=== PATIENT | male | born 1940 | race Caucasian/White ===

== ENCOUNTER → 2024-06-12 | Outpatient (CLI) | payer OTHER, SELFPAY ==
[2024-06-12 17:17] LABS: Alanine Aminotransferase 20 U/L (10-49); Albumin, Serum 4.5 gm/dL (3.4-4.8); Albumin/Globulin Ratio 1.7 (1.2-2.2); Alkaline Phosphatase 46 U/L (46-116); Anion Gap 6 (7-16); Aspartate Amino Transferase 20 U/L (0-34); BUN/Creatinine Ratio 23 Ratio (12-20); Bilirubin,Total 1.1 mg/dL (0.3-1.2); Blood Urea Nitrogen 23 mg/dL (9-23); Carbon Dioxide 29.4 mMol/L (20.0-31.0); Chloride 104 mMol/L (98-107); Globulin 2.6 gm/dL (2.3-3.5); Glucose 142 mg/dL (74-106); Osmolality,Calculated 283 (275-295); Potassium 4.2 mMol/L (3.4-5.1); Sodium 139 mMol/L (136-145); Total Protein 7.1 gm/dL (5.7-8.2); eGFR > 60 See Note
[2024-06-12 17:19] LABS: D-Dimer 1660 ng/mL (<600)
[2024-06-12 17:20] LABS: B-Type Natriuretic Peptide 1601 pg/mL (0-100)
== END | disposition home or self-care (01) ==
LOC: COPL 15:22
PROVIDERS: PCP Family Medicine; Referring Provider Nurse Practitioner Family; Visit Provider Nurse Practitioner Family
DX: R22.43 Localized swelling, mass and lump, lower limb, bilateral (principal)
CPT/HCPCS: 36415; 80053; 83880; 85379

== ENCOUNTER 2024-06-26 11:29 | Emergency (ER) | payer OTHER, SELFPAY ==
[2024-06-26 11:38] VITALS: BP 113/67; PULSE 87; RESP 16; TEMP 36.6; O2SAT 96; BMI 25.7
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
--- NOTE | 2024-06-26 11:58 | EKG_ITS ---
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
[2024-06-26 12:22] LABS: Basophils # (Auto) 0.1 Thou/mm3 (0.0-0.2); Basophils % (Auto) 2 % (0-2.5); Eosinophils # (Auto) 0.9 Thou/mm3 (0.0-0.5); Eosinophils % (Auto) 22 % (0-10); Hematocrit 28.6 % (41.0-53.0); Hemoglobin 9.8 g/dL (13.5-16.0); Immature Granulocytes % (Auto) 0 % (0-0); Immature Granulocytes Auto 0.01 Thou/mm3 (0.00-0.00); Lymphocytes # (Auto) 0.7 Thou/mm3 (1.0-4.8); Lymphocytes % (Auto) 17 % (10-50); Mean Corpuscular HGB Conc 34.3 g/dl (31.0-37.0); Mean Corpuscular Hemoglobin 33.9 pg (25.0-35.0); Mean Corpuscular Volume 99 fL (80-100); Monocytes # (Auto) 0.4 Thou/mm3 (0.0-0.8); Monocytes % (Auto) 8 % (0-12); Neutrophils # (Auto) 2.2 Thou/mm3 (1.8-7.7); Neutrophils % (Auto) 52 % (37-80); Nucleated Red Blood Cell % 0 /100 WBC (0); Platelet Count 136 Thou/mm3 (140-440); RDW Standard Deviation 48.5 fL (35.1-43.9); Red Blood Count 2.89 Miln/mm3 (4.50-5.90); White Blood Count 4.3 Thou/mm3 (3.8-10.6)
[2024-06-26 12:26] LABS: Collection Type, Urine Clean Catch; Squamous Epithelial Cell,Urine 0 /hpf (0-5)
[2024-06-26 12:36] LABS: INR 1.2 (0.9-1.3); Partial Thromboplastin Time 28.8 Seconds (22.0-36.0); Prothrombin Time 13.2 Seconds (9.0-12.2)
[2024-06-26 12:47] LABS: Bilirubin,Urine Negative (Negative); Blood,Urine Negative (Negative); Color,Urine Yellow (Lt Yel-Yel); Glucose, Urine Negative (Negative); Hyaline Casts,Urine < 1 /hpf (0-1); Ketones,Urine Negative (Negative); Leukocyte Esterase,Urine Positive (Negative); Nitrite,Urine Negative (Negative); PH,Urine 6.5 (5.0-7.0); Protein,Urine 4+ (Neg - Trace); RBC,Urine 10 /hpf (0-3); Specific Gravity,Urine 1.014 (1.001-1.035); WBC,Urine 1 /hpf (0-5)
[2024-06-26 12:51] LABS: Clarity,Urine Cloudy (Clear/Hazy)
[2024-06-26 12:53] LABS: Alanine Aminotransferase 18 U/L (10-49); Albumin, Serum 4.4 gm/dL (3.4-4.8); Albumin/Globulin Ratio 1.6 (1.2-2.2); Alkaline Phosphatase 44 U/L (46-116); Anion Gap 8 (7-16); Aspartate Amino Transferase 22 U/L (0-34); BUN/Creatinine Ratio 19 Ratio (12-20); Bilirubin,Total 1.2 mg/dL (0.3-1.2); Blood Urea Nitrogen 17 mg/dL (9-23); Calcium 9.7 mg/dL (8.3-10.6); Calcium (Corrected) 9.7 mg/dL (8.5-10.1); Carbon Dioxide 24.8 mMol/L (20.0-31.0); Chloride 106 mMol/L (98-107); Creatinine (Component) 0.9 mg/dL (0.6-1.3); Globulin 2.7 gm/dL (2.3-3.5); Glucose 197 mg/dL (74-106); Osmolality,Calculated 284 (275-295); Potassium 4.6 mMol/L (3.4-5.1); Sodium 139 mMol/L (136-145); Total Protein 7.1 gm/dL (5.7-8.2); Troponin I 0.035 ng/mL (0.0-0.045); eGFR > 60 See Note
[2024-06-26 13:06] VITALS: BP 121/68; PULSE 73; RESP 18; TEMP 36.4; O2SAT 98
== END 2024-06-26 13:51 | disposition home or self-care (01) ==
PROVIDERS: Nurse Practitioner Primary Care; Emergency Provider Emergency Medicine; PCP Family Medicine
DX: R51.9 Headache, unspecified (principal); R42 Dizziness and giddiness; I10 Essential (primary) hypertension; V49.40XA Driver injured in collision with unspecified motor vehicles in traffic accident, initial encounter; Y92.410 Unspecified street and highway as the place of occurrence of the external cause
CPT/HCPCS: 36415; 70450; 71046; 72125; 80053; 81001; 84484; 85025; 85610; 85730; 93005; 99284

== ENCOUNTER 2024-07-17 14:39 | Emergency (ER) | payer OTHER, SELFPAY ==
[2024-07-17 15:00] VITALS: BP 111/64; PULSE 91; RESP 18; TEMP 36.5; O2SAT 96; BMI 28.1
--- NOTE | 2024-07-17 15:04 | PD.EDRME ---
Rapid Medical Screening Exam RME Arrival date/time: 07/17/24 14:39 83 yo m present to Ed for c/o of + blood clot done today. US results pending official read. I have greeted and performed a focused initial assessment of this patient. A comprehensive ED assessment and evaluation of the patient, analysis of all test results, and completion of the medical decision making process will be conducted by additional ED providers. Chief Complaint: General Adult/Misc Complain Time Seen by Provider: 07/17/24 15:01 Vital signs: Vital Signs Temperature 97.7 F 07/17/24 15:00 Pulse Rate 91 07/17/24 15:00 Respiratory Rate 18 07/17/24 15:00 Blood Pressure 111/64 07/17/24 15:00 Pulse Oximetry (%) 96 07/17/24 15:00 Oxygen Delivery Method Room Air 07/17/24 15:00
[2024-07-17 16:20] LABS: Basophils # (Auto) 0.1 Thou/mm3 (0.0-0.2); Basophils % (Auto) 1 % (0-2.5); Eosinophils # (Auto) 2.7 Thou/mm3 (0.0-0.5); Eosinophils % (Auto) 40 % (0-10); Immature Granulocytes % (Auto) 0 % (0-0); Immature Granulocytes Auto 0.01 Thou/mm3 (0.00-0.00); Lymphocytes % (Auto) 15 % (10-50); Mean Corpuscular HGB Conc 34.5 g/dl (31.0-37.0); Mean Corpuscular Hemoglobin 33.4 pg (25.0-35.0); Mean Corpuscular Volume 97 fL (80-100); Monocytes # (Auto) 0.5 Thou/mm3 (0.0-0.8); Monocytes % (Auto) 7 % (0-12); Neutrophils # (Auto) 2.6 Thou/mm3 (1.8-7.7); Neutrophils % (Auto) 38 % (37-80); Nucleated Red Blood Cell % 0 /100 WBC (0); Platelet Count 151 Thou/mm3 (140-440); RDW Standard Deviation 46.8 fL (35.1-43.9); Red Blood Count 2.99 Miln/mm3 (4.50-5.90); White Blood Count 6.8 Thou/mm3 (3.8-10.6)
[2024-07-17 17:02] LABS: Alanine Aminotransferase 12 U/L (10-49); Albumin, Serum 4.2 gm/dL (3.4-4.8); Albumin/Globulin Ratio 1.5 (1.2-2.2); Alkaline Phosphatase 48 U/L (46-116); Anion Gap 9 (7-16); Aspartate Amino Transferase 19 U/L (0-34); BUN/Creatinine Ratio 19 Ratio (12-20); Bilirubin,Total 1.4 mg/dL (0.3-1.2); Blood Urea Nitrogen 17 mg/dL (9-23); Calcium 9.3 mg/dL (8.3-10.6); Calcium (Corrected) 9.3 mg/dL (8.5-10.1); Carbon Dioxide 24.7 mMol/L (20.0-31.0); Chloride 103 mMol/L (98-107); Creatinine (Component) 0.9 mg/dL (0.6-1.3); Estimated Creatinine Clearance 56.4 mL/min (>60); Globulin 2.8 gm/dL (2.3-3.5); Glucose 136 mg/dL (74-106); Osmolality,Calculated 277 (275-295); Potassium 4.4 mMol/L (3.4-5.1); Sodium 137 mMol/L (136-145); eGFR > 60 See Note
[2024-07-17 17:44] LABS: INR 1.2 (0.9-1.3); Prothrombin Time 12.9 Seconds (9.0-12.2)
--- NOTE | 2024-07-17 19:14 | PD.EDADULT ---
ED General RME/HPI General Chief complaint: General Adult/Misc Complain Stated complaint: SENT BY OUTPT [facility]/S. PT DOESN'T KNOW WHY. Time Seen by Provider: 07/17/24 15:01 Arrival date/time: 07/17/24 14:39 CC: DVT HPI patient presented to the ER via primary care doctor for an outpatient ultrasound which showed extensive nonocclusive DVTs in both lower extremities. Patient has no shortness of breath difficulty breathing headache nausea vomiting or diarrhea. RME / HPI RME / HPI narrative: 07/17/24 14:39 83 yo m present to Ed for c/o of + blood clot done today. US results pending official read. I have greeted and performed a focused initial assessment of this patient. A comprehensive ED assessment and evaluation of the patient, analysis of all test results, and completion of the medical decision making process will be conducted by additional ED providers. Related Data Home Medications ?Medication ?Instructions ?Recorded ?Confirmed aspirin 81 mg tablet,delayed 81 mg PO QDAY 08/31/19 08/29/20 release (Aspir-) gabapentin 100 mg capsule 100 mg PO BID 08/31/19 08/29/20 glipizide 10 mg tablet 10 mg PO BID 08/31/19 08/29/20 lisinopril 5 mg tablet 5 mg PO QDAY 08/31/19 08/29/20 metformin 850 mg tablet 850 mg PO TID 08/31/19 08/29/20 nitroglycerin 0.4 mg sublingual 0.4 mg buccal USEASDIRECTD 08/31/19 08/29/20 tablet (Nitrostat) omega 3-hmn-olv-fish oil 1,000 mg 1 cap PO BID 08/31/19 08/29/20 (120 mg-180 mg) capsule (Fish Oil) simvastatin 80 mg tablet 80 mg PO QPM 08/31/19 08/29/20 terazosin 2 mg capsule 2 mg PO QDAY 08/31/19 08/29/20 Previous Rx's ?Medication ?Instructions ?Recorded apixaban 2.5 mg tablet (Eliquis) 2.5 mg PO BID #30 tabs 07/17/24 Allergies Allergy/AdvReac Type Severity Reaction Status Date / Time No Known Allergies Allergy Verified 07/17/24 14:43 Review of Systems Review of Systems Narrative Review of Systems: GEN: No fever, no chills, no weight loss EYES: No discharge, no visual changes, no pain HEENT: No ear pain, no congestion, no sore throat PULM: No shortness of breath, no cough, no congestion CV: No chest pain, no dyspnea on exertion, no palpitations GI: No nausea, no vomiting, no diarrhea, no pain, no constipation : No frequency, no urgency, no dysuria MUSC/SKEL: No joint pain, no back pain SKIN: No rash PSYCH: No hallucinations, no depression HEME/LYMPH: No easy bleeding or bruising tendencies NEURO: No weakness, no headache Past Medical History Past Medical History NEUROLOGIC: Negative Neurological Disorders, Dementia or Seizures CARDIAC: Positive Hypercholesterolemia and Hypertension; Negative Cardiac Disorders, Myocardial Infarction, Cardiac Arrhythmia, Atrial Fibrillation, Angina, Heart Murmur, Coronary Artery Disease, Atherosclerotic Heart Disease, Peripheral Vascular Disease, Aneurysm, Congestive Heart Failure, Congenital Heart Disease, Valvular Heart Disease, Rheumatic Fever, Cardiomyopathy, Edema, Pericarditis, Cellulitis, Deep Vein Thrombosis, Hypotension or Varicose Veins RESPIRATORY: Negative Chronic Obstructive Pulmonary Disease (COPD) GASTROINTESTINAL: Negative Gastrointestinal Disorders, Hepatitis, Cirrhosis, Celiac Disease or Colorectal Cancer GENITOURINARY: Negative Genitourinary Disorders, Renal Disease, Kidney Stones or Prostate Cancer REPRODUCTIVE: Negative Breast Cancer, Genital Herpes, Syphilis or Testicular Cancer MUSCULOSKELETAL: Negative Musculoskeletal Disorders, Marfan's Syndrome, Bone Cancer or Carpal Tunnel Syndrome ENT: Negative Cataracts, Blind or Deafness ENDOCRINE: Positive Endocrine Disorders and Diabetes Mellitus Type 2; Negative Diabetes Mellitus Type 1 HEMATOLOGIC: Negative Blood Disorders or Sickle Cell Disease PSYCHO/SOCIAL: Positive Anxiety; Negative Schizophrenia OTHER HISTORY: Positive Hospitalization, Falls, Chicken Pox and Mumps; Negative Autoimmune Disease, Down Syndrome, Developmental Delay, Shingles, Blood Transfusions, Blood Transfusion Reaction, Anesthesia Reactions, Organ Transplant, Chemotherapy, Radiation Therapy, Hyperbaric Therapy, MRSA, VRSA, Vancomycin-Resistant Enterococci, Human Immunodeficiency Virus (HIV), Measles, Rubella (Mongolian Measles), Pertussis, Clostridium Difficile, Cancer, Breast Cancer, Cervical Cancer, Colorectal Cancer, Lung Cancer, Ovarian Cancer, Prostate Cancer or Testicular Cancer Family History FAMILY HISTORY: Positive Family Cardiac Disorders, Family Cancer and Family Surgery; Negative Family Psychiatric Problems, Family Respiratory Disorders, Family Gastrointestinal Problems or Family Anesthesia Reaction Surgical History SURGICAL: Positive Pacemaker and Joint Replacement; Negative Cardiac Surgery, Open Heart Surgery, Coronary Artery Bypass Graft, Valve Replacement, Vascular Surgery, Coronary Stent, Cardiac Catheterization, Angiogram, Auto Implanted Cardiovert Defib, Carotid Endarterectomy, Endocrine Surgery, Thyroidectomy, Ear Surgery, Tympanostomy Tube, Eye Surgery, Nose Surgery, Oral Surgery, Tonsillectomy, Adenoidectomy, Cochlear Implant, Corneal Transplant, Throat Surgery, Abdominal Surgery, Tracheostomy, Gastric Bypass Surgery, Gastrostomy, Bowel Surgery, Nephrectomy, Transurethral Resection, Amputation, Open Reduction Internal Fixation, Arthroscopy, Neurologic Surgery, Brain Shunt, Mastectomy, Lumpectomy, Hysterectomy, Tubal Ligation, Section, Vasectomy or Organ Transplant Social History SMOKING STATUS: Former smoker SUBSTANCE USE: does not use ED Exam Narrative Physical exam: [General: Not in any acute distress Head normocephalic HEENT: Eyes pupils are PERRLA EOMs are intact nose no rhinorrhea. All other subsystems of HEENT are within acceptable limits Neck is supple nontender Chest equal chest rise nontender to palpation Respiratory: Clear to auscultation no wheezes crackles or rubs CV: Rate rhythm is regular no murmurs rubs or clicks, no tachycardia irregular rhythm or bradycardia. Abdomen is soft nontender no masses positive bowel sounds all 4 quadrants Back: No CVA tenderness no spinous process tenderness from cervical spine thoracic and lumbar spine Skin: Intact no petechiae rash induration ulceration or crepitus Extremities: Moving all extremity against resistance cap refill less than 2 seconds neurosensory intact Neuro: Awake alert oriented x3 Glascow coma 15 no focal deficits] Course Quality Measures none Orders Category Date Time Status CBC Stat Lab 07/17/24 16:03 Completed CMP [Comprehensive Metabolic Panel] Stat Lab 07/17/24 16:03 Completed INR [Prothrombin Time with INR] Stat Lab 07/17/24 16:03 Completed Apixaban [Eliquis] Med 07/17/24 19:11 Discontinued 2.5 mg PO X1 ONE Vital Signs Vital signs: Vital Signs Temperature 97.7 F 07/17/24 15:00 Pulse Rate 91 07/17/24 15:00 Respiratory Rate 18 07/17/24 15:00 Blood Pressure 111/64 07/17/24 15:00 Pulse Oximetry (%) 96 07/17/24 15:00 Oxygen Delivery Method Room Air 07/17/24 15:00 [facility] Patient data External records reviewed:: [facility] previous records Clinical information provided by:: patient Social determinants that could affect healthcare access:: none Patient has the following chronic illnesses:: Third-degree heart block hyperlipidemia hypertension diabetes How is presenting disease/condition affected by chronic disease/condition?: uneffected by Evaluation data The following diagnostics were reviewed and interpreted by me:: lab results and radiology exam(s) Lab and/or radiology exams considered but not ordered:: Ultrasound shows extensive nonocclusive DVTs to both lower extremities CBC shows no leukocytosis and H&H of 10.0 and 29.0 respectively with platelets at 151 PT is 12.9 INR is 1.2 Glucose 136 no other electrolyte imbalances no renal impairment T. bili 1.4 no transaminitis. Interpretation Summary: Patient's case discussed with Dr. Ledesma, package maker, who will be seeing the patient tomorrow on a regular schedule appointment, he agrees the patient is to stop the Plavix and aspirin and started on Eliquis. Initial dose will be administered in this facility. Given the patient is over 80 years old initial dose will be 2.5 mg. Medications Medications considered but not ordered:: None none Medication administrations:: Medication Administration History Discontinued Medications Apixaban (Apixaban 2.5 Mg Tablet) 2.5 mg PO X1 ONE Stop: 07/17/24 19:12 None Consultations Consultation(s) initiated? (list below): No Diagnosis Differential Diagnosis ED Complaint MDM: DVT superficial thrombophlebitis vasculitis Most likely diagnosis given after review of the tests above:: Nonocclusive DVT Admission Indicated Admission indicated?: not indicated Explain why admission is indicated or not indicated:: Stable for outpatient follow-up Admission Request Was there a request for admission?: No Disposition Plan Disposition Plan: Discharge Discharge Attestation Discharge Attestation: The patient and all family members were given an opportunity to ask questions and understood the discharge instructions. Discharge instructions specifically effects, indications for sooner follow up or return to the emergency department, and the expected course of current diagnosis. Patient condition: Stable Medical Decision Making Differential Diagnosis Differential Diagnosis: DVT superficial thrombophlebitis vasculitis Lab Data 07/17/24 16:03 07/17/24 16:03 Labs: Lab Results 07/17/24 Range/Units 16:03 WBC 6.8 (3.8-10.6) Thou/mm3 RBC 2.99 L (4.50-5.90) Miln/mm3 Hgb 10.0 L (13.5-16.0) g/dL Hct 29.0 L (41.0-53.0) % MCV 97 (80-100) fL MCH 33.4 (25.0-35.0) pg MCHC 34.5 (31.0-37.0) g/dl RDW Std Deviation 46.8 H (35.1-43.9) fL Plt Count 151 (140-440) Thou/mm3 Neut % (Auto) 38 (37-80) % Lymph % (Auto) 15 (10-50) % [place] % (Auto) 7 (0-12) % Eos % (Auto) 40 H (0-10) % Baso % (Auto) 1 (0-2.5) % Neut # (Auto) 2.6 (1.8-7.7) Thou/mm3 Lymph # (Auto) 1.0 (1.0-4.8) Thou/mm3 [place] # (Auto) 0.5 (0.0-0.8) Thou/mm3 Eos # (Auto) 2.7 H (0.0-0.5) Thou/mm3 Baso # (Auto) 0.1 (0.0-0.2) Thou/mm3 Immature Gran # (Auto) 0.01 H (0.00-0.00) Thou/mm3 Absolute Nucleated RBC 0.00 (0.00-0.00) Thou/mm3 Immature Gran % 0 (0-0) % Nucleated RBC % 0 (0) /100 WBC PT 12.9 H (9.0-12.2) Seconds INR 1.2 (0.9-1.3) Sodium 137 (136-145) mMol/L Potassium 4.4 (3.4-5.1) mMol/L Chloride 103 (98-107) mMol/L Carbon Dioxide 24.7 (20.0-31.0) mMol/L Anion Gap 9 (7-16) BUN 17 (9-23) mg/dL Creatinine 0.9 (0.6-1.3) mg/dL Estim Creat Clear Calc 56.4 L (>60) mL/min eGFR > 60 (60 - ) See Note BUN/Creatinine Ratio 19 (12-20) Ratio Glucose 136 H (74-106) mg/dL Calculated Osmolality 277 (275-295) Calcium 9.3 (8.3-10.6) mg/dL Corrected Calcium 9.3 (8.5-10.1) mg/dL Total Bilirubin 1.4 H (0.3-1.2) mg/dL AST 19 (0-34) U/L ALT 12 (10-49) U/L Alkaline Phosphatase 48 (46-116) U/L Total Protein 7.0 (5.7-8.2) gm/dL Albumin 4.2 (3.4-4.8) gm/dL Globulin 2.8 (2.3-3.5) gm/dL Albumin/Globulin Ratio 1.5 (1.2-2.2) Discharge Plan Plan Patient Disposition: HOME (Self Care) Patient condition on transfer: Stable Prescriptions/Referrals Prescriptions/Med Rec: New Eliquis 2.5 mg tablet 2.5 mg PO BID Qty: 30 1RF No Action glipizide 10 mg Tablet 10 mg PO BID metformin 850 mg Tablet 850 mg PO TID simvastatin 80 mg Tablet 80 mg PO QPM aspirin [Aspir-81] 81 mg Tablet,Delayed Release (Dr/Ec) 81 mg PO QDAY terazosin 2 mg Capsule 2 mg PO QDAY nitroglycerin [Nitrostat] 0.4 mg Tablet, Sublingual 0.4 mg BUCCAL USEASDIRECTD lisinopril 5 mg Tablet 5 mg PO QDAY gabapentin 100 mg Capsule 100 mg PO BID omega 2-twj-thp-fish oil [Fish Oil] 1,000 mg (120 mg-180 mg) Capsule 1 cap PO BID Referrals: No Primary/Family,Physician [Primary Care Provider] - In 1 week Sarah Ledesma MD [Physician] - In 1 week Problem List Clinical Impression: DVT (deep venous thrombosis) Patient/Caregiver Discharge Instructions Education Materials: DVT Dc Additional Instructions: Stop the Plavix and aspirin and begin the Eliquis. If there is any bleeding from your nose rectum or any other part of your body that is not controlled with direct pressure immediately return to the emergency room for reevaluation. Print Language: Bulgarian Stand Alone Forms: Daniella Award Info., Work/School Release, Patient Portal Info Letter PA/METAL TREATER Supervising Physician PA/METAL TREATER Supervising Physician: Jah Neal ENP
[2024-07-17] MEDS: APIXABAN 2.5 MG TABLET PO (19:21)
[2024-07-17 19:24] VITALS: RESP 18
[2024-07-18 08:37] LABS: Path Review Blood Smear Sent to Pathologist
== END 2024-07-17 19:25 | disposition home or self-care (01) ==
PROVIDERS: Physician Assistant; Emergency Provider Emergency Medicine
DX: I82.403 Acute embolism and thrombosis of unspecified deep veins of lower extremity, bilateral (principal)
CPT/HCPCS: 36415; 80053; 85025; 85610; 99283; A9270

== ENCOUNTER → 2024-07-17 | Outpatient (CLI) | payer OTHER, SELFPAY ==
--- NOTE | 2024-07-17 12:59 | XR_ITS ---
Examination: Venous duplex lower extremity sonogram, bilateral. Date and time of exam: July 17, 2024 1305 hours INDICATIONS: Bilateral leg swelling beginning 2 weeks ago Technique: Multiple sonographic images of the deep venous system have been obtained. B-mode/2-D grayscale imaging of vascular structures and Doppler spectral analysis (waveforms) and color performed Both legs are examined. Findings: Bilateral nonocclusive DVT involving common femoral superficial femoral and popliteal veins IMPRESSION: Extensive acute nonocclusive deep vein thrombus as above
== END | disposition home or self-care (01) ==
PROVIDERS: PCP Student in an Organized Health Care Education/Training Program; Referring Provider Student in an Organized Health Care Education/Training Program; Visit Provider Student in an Organized Health Care Education/Training Program
DX: I82.403 Acute embolism and thrombosis of unspecified deep veins of lower extremity, bilateral (principal)
CPT/HCPCS: 93970

== ENCOUNTER → 2024-08-13 | Outpatient (CLI) | payer OTHER, SELFPAY ==
[2024-08-13 11:46] LABS: Alanine Aminotransferase 16 U/L (10-49); Albumin, Serum 4.5 gm/dL (3.4-4.8); Albumin/Globulin Ratio 1.6 (1.2-2.2); Alkaline Phosphatase 45 U/L (46-116); Anion Gap 6 (7-16); Aspartate Amino Transferase 23 U/L (0-34); BUN/Creatinine Ratio 18 Ratio (12-20); Basophils # (Auto) 0.1 Thou/mm3 (0.0-0.2); Basophils % (Auto) 1 % (0-2.5); Bilirubin,Total 1.2 mg/dL (0.3-1.2); Blood Urea Nitrogen 18 mg/dL (9-23); Calcium 9.5 mg/dL (8.3-10.6); Calcium (Corrected) 9.5 mg/dL (8.5-10.1); Carbon Dioxide 28.6 mMol/L (20.0-31.0); Cardiac Risk Estimate 2.3 RATIO (4.0-6.7); Chloride 106 mMol/L (98-107); Cholesterol 140 mg/dL (132-200); Eosinophils % (Auto) 21 % (0-10); Globulin 2.8 gm/dL (2.3-3.5); Glucose 125 mg/dL (74-106); Glucose Estimated Average 143 mg/dL (80-131); HDL Cholesterol 60 mg/dL (40-60); Hematocrit 32.5 % (41.0-53.0); Hemoglobin 11.2 g/dL (13.5-16.0); Hemoglobin A1C 6.6 % Hgb (4.8-6.0); Immature Granulocytes % (Auto) 0 % (0-0); Immature Granulocytes Auto 0.01 Thou/mm3 (0.00-0.00); Iron 73 mcg/dL (65-175); LDL Cholesterol,Calculated 63 mg/dL (0-130); Lymphocytes # (Auto) 0.8 Thou/mm3 (1.0-4.8); Lymphocytes % (Auto) 18 % (10-50); Mean Corpuscular HGB Conc 34.5 g/dl (31.0-37.0); Mean Corpuscular Hemoglobin 33.1 pg (25.0-35.0); Mean Corpuscular Volume 96 fL (80-100); Monocytes # (Auto) 0.4 Thou/mm3 (0.0-0.8); Monocytes % (Auto) 7 % (0-12); Neutrophils # (Auto) 2.5 Thou/mm3 (1.8-7.7); Neutrophils % (Auto) 53 % (37-80); Nucleated Red Blood Cell % 0 /100 WBC (0); Osmolality,Calculated 284 (275-295); Percent Iron Saturation 21 % (20-55); Platelet Count 163 Thou/mm3 (140-440); Potassium 4.2 mMol/L (3.4-5.1); RDW Standard Deviation 46.2 fL (35.1-43.9); Red Blood Count 3.38 Miln/mm3 (4.50-5.90); Sodium 141 mMol/L (136-145); Total Iron Binding Capacity 337 mcg/dL (250-425); Total Protein 7.3 gm/dL (5.7-8.2); Triglycerides 84 mg/dL (30-150); Unsaturated Iron Binding 264 (225-295); White Blood Count 4.8 Thou/mm3 (3.8-10.6); eGFR > 60 See Note
[2024-08-17 15:32] LABS: PSA, Free 0.14 ng/mL; PSA, Total 0.7 ng/mL (< OR = 4.0)
== END | disposition home or self-care (01) ==
LOC: COPL 10:23
PROVIDERS: PCP Family Medicine; Referring Provider Student in an Organized Health Care Education/Training Program; Visit Provider Student in an Organized Health Care Education/Training Program
DX: D64.9 Anemia, unspecified (principal); I25.10 Atherosclerotic heart disease of native coronary artery without angina pectoris; E78.00 Pure hypercholesterolemia, unspecified; E11.65 Type 2 diabetes mellitus with hyperglycemia; Z12.5 Encounter for screening for malignant neoplasm of prostate
CPT/HCPCS: 36415; 80053; 80061; 83036; 83540; 83550; 84153; 84154; 85025

== ENCOUNTER → 2024-09-19 | Outpatient (CLI) | payer OTHER, SELFPAY ==
--- NOTE | 2024-09-19 15:30 | XR_ITS ---
Examination: Ultrasound soft tissue elbow, left TECHNIQUE: Soto scale sonographic images soft tissue left elbow Date and time: September 19, 2024 1621 hours INDICATIONS: Palpable lump left elbow noticed beginning 3 weeks ago FINDINGS: Cystic area with septations at the area of concern soft tissue elbow 7.3 x 1.3 x 3.5 cm IMPRESSION: Cystic area in the soft tissue available at the area of concern, 7.3 x 1.3 x 3.5 cm, differential would include complicated cyst, abscess, this is amenable to ultrasound-guided aspiration as clinically warranted
== END | disposition home or self-care (01) ==
PROVIDERS: PCP Student in an Organized Health Care Education/Training Program; Referring Provider Student in an Organized Health Care Education/Training Program; Visit Provider Student in an Organized Health Care Education/Training Program
DX: R22.32 Localized swelling, mass and lump, left upper limb (principal)
CPT/HCPCS: 76882

== ENCOUNTER → 2024-09-27 | Outpatient (CLI) | payer OTHER, SELFPAY ==
[2024-09-26 13:14] LABS: INR 1.1 (0.9-1.3); Partial Thromboplastin Time 29.3 Seconds (22.0-36.0); Prothrombin Time 12.4 Seconds (9.0-12.2)
[2024-09-26 13:16] LABS: Basophils # (Auto) 0.1 Thou/mm3 (0.0-0.2); Basophils % (Auto) 1 % (0-2.5); Eosinophils # (Auto) 2.5 Thou/mm3 (0.0-0.5); Eosinophils % (Auto) 43 % (0-10); Hematocrit 31.1 % (41.0-53.0); Hemoglobin 10.9 g/dL (13.5-16.0); Immature Granulocytes % (Auto) 0 % (0-0); Immature Granulocytes Auto 0.01 Thou/mm3 (0.00-0.00); Lymphocytes % (Auto) 17 % (10-50); Mean Corpuscular Hemoglobin 33.4 pg (25.0-35.0); Mean Corpuscular Volume 95 fL (80-100); Monocytes # (Auto) 0.4 Thou/mm3 (0.0-0.8); Monocytes % (Auto) 7 % (0-12); Neutrophils # (Auto) 1.9 Thou/mm3 (1.8-7.7); Neutrophils % (Auto) 33 % (37-80); Nucleated Red Blood Cell % 0 /100 WBC (0); Platelet Count 150 Thou/mm3 (140-440); Red Blood Count 3.26 Miln/mm3 (4.50-5.90); White Blood Count 5.8 Thou/mm3 (3.8-10.6)
--- NOTE | 2024-09-27 10:30 | XR_ITS ---
Examination: Ultrasound-guided aspiration cystic mass left elbow Sonographic images left elbow Date and time: September 27, 2024 1003 hours INDICATIONS: Left elbow swelling this week, patient is anticoagulated TECHNIQUE AND FINDINGS: Sonographic images obtained of palpable mass in dorsum of the elbow Skin prepped over the site with sterile drape and hygiene ultrasound sterile technique 1% lidocaine administered for local anesthesia Utilizing ultrasonographic guidance aspiration 12 cc blood from the mass IMPRESSION: 12 cc blood aspirated from the patient's palpable elbow mass
== END | disposition home or self-care (01) ==
LOC: SDIM 09:48 → SIRX 10:01
PROVIDERS: Radiology Diagnostic Radiology; PCP Student in an Organized Health Care Education/Training Program; Referring Provider Student in an Organized Health Care Education/Training Program; Visit Provider Student in an Organized Health Care Education/Training Program
DX: R22.32 Localized swelling, mass and lump, left upper limb (principal); Z01.812 Encounter for preprocedural laboratory examination
CPT/HCPCS: 20606; 36415; 75989; 85025; 85610; 85730

== ENCOUNTER 2024-12-03 08:35 | Day surgery (SDC) | payer OTHER, SELFPAY ==
--- NOTE | 2024-11-30 06:00 | EKG_ITS ---
[facility] Test Date: 2024-11-30 Pat Name: HALLIE SALAZAR Department: Room: - Gender: Male Tie Bucker: ELE : 1940 Requested By: Lucas Whittaker Order Number: [id number] Reading MD: Lucas Whittaker Measurements Intervals [place] Rate: 74 P: 75 MO: 173 QRS: -67 QRSD: 202 T: 95 QT: 465 QTc: 518 Interpretive Statements ELECTRONIC ATRIAL PACEMAKER ELECTRONIC VENTRICULAR PACEMAKER ABNORMAL RHYTHM ECG Compared to ECG 06/26/2024 14:02:10 No significant changes /store/S0/[id number].pdf
[2024-11-30 12:18] LABS: Alanine Aminotransferase 13 U/L (10-49); Albumin, Serum 4.4 gm/dL (3.4-4.8); Albumin/Globulin Ratio 1.5 (1.2-2.2); Alkaline Phosphatase 47 U/L (46-116); Anion Gap 11 (7-16); Aspartate Amino Transferase 22 U/L (0-34); BUN/Creatinine Ratio 15 Ratio (12-20); Bilirubin,Total 1.2 mg/dL (0.3-1.2); Blood Urea Nitrogen 15 mg/dL (9-23); Calcium 9.5 mg/dL (8.3-10.6); Calcium (Corrected) 9.5 mg/dL (8.5-10.1); Carbon Dioxide 28.4 mMol/L (20.0-31.0); Chloride 101 mMol/L (98-107); Creatinine (Component) 1.0 mg/dL (0.6-1.3); Globulin 2.9 gm/dL (2.3-3.5); Glucose 247 mg/dL (74-106); Osmolality,Calculated 288 (275-295); Potassium 4.3 mMol/L (3.4-5.1); Sodium 140 mMol/L (136-145); Total Protein 7.3 gm/dL (5.7-8.2); eGFR > 60 See Note
[2024-11-30 12:27] LABS: INR 1.1 (0.9-1.3); Partial Thromboplastin Time 28.7 Seconds (22.0-36.0); Prothrombin Time 12.1 Seconds (9.0-12.2)
[2024-12-03] VITALS (8 sets, daily range): BP systolic 102–137; BP diastolic 57–79; PULSE 63–72; RESP 12–19; TEMP 36.2–36.6; O2SAT 94–100; BMI 26.5
[2024-12-03] MEDS: Ampicillin Inj 2,000 MG in SODIUM CHLORIDE 0.9% (POP) 100 ML 100 MG IV (10:00)
[2024-12-03] MEDS: RINGERS LACTATED 1000 ML 1,000 ML 20 ML IV (10:00)
--- NOTE | 2024-12-03 10:30 | SUR.PREOP ---
PATIENT WAS SEEN BY 2.5 MONTHS AGO AND TREATED FOR LEFT LOWER LEG DVT. PATIENT HAS BEEN ON ELIQUIS FOR TREATMENT. LEG HAS NO REDNESS OR SWELLING. PATIENT DENIES TENDERNESS OR PAIN. PER PATIENT THE CLOT IS GONE.
[2024-12-03] MEDS: GENTAMICIN IV (10:49)
[2024-12-03] MEDS: SODIUM CHLORIDE 0.9% IV (10:49)
== END 2024-12-03 12:35 | disposition home or self-care (01) ==
PROVIDERS: Anesthesiology; PCP Internal Medicine; Referring Provider Specialist; Visit Provider Specialist
PROC: 0DBE8ZX Excision of Large Intestine, Via Natural or Artificial Opening Endoscopic, Diagnostic (ICD-10-PCS; CPT 45380; principal; 2024-12-03 10:00)
PROC: (CPT 43239; 2024-12-03 10:00)
DX: D12.2 Benign neoplasm of ascending colon (principal); D50.9 Iron deficiency anemia, unspecified; R19.5 Other fecal abnormalities; Z01.810 Encounter for preprocedural cardiovascular examination; R94.31 Abnormal electrocardiogram [ECG] [EKG]; K64.9 Unspecified hemorrhoids; K57.30 Diverticulosis of large intestine without perforation or abscess without bleeding; Z95.0 Presence of cardiac pacemaker; Z98.61 Coronary angioplasty status; E78.5 Hyperlipidemia, unspecified; I10 Essential (primary) hypertension; E11.42 Type 2 diabetes mellitus with diabetic polyneuropathy
CPT/HCPCS: 45385; 36415; 80053; 85610; 85730; 93005; J0290; J1580; J7120

== ENCOUNTER → 2025-02-13 | Outpatient (CLI) | payer OTHER, SELFPAY ==
[2025-02-13 13:47] LABS: Basophils # (Auto) 0.1 Thou/mm3 (0.0-0.2); Basophils % (Auto) 2 % (0-2.5); Eosinophils # (Auto) 0.3 Thou/mm3 (0.0-0.5); Eosinophils % (Auto) 9 % (0-10); Hematocrit 30.1 % (41.0-53.0); Hemoglobin 10.4 g/dL (13.5-16.0); Immature Granulocytes Auto 0.01 Thou/mm3 (0.00-0.00); Lymphocytes # (Auto) 0.8 Thou/mm3 (1.0-4.8); Lymphocytes % (Auto) 21 % (10-50); Mean Corpuscular HGB Conc 34.6 g/dl (31.0-37.0); Mean Corpuscular Hemoglobin 33.9 pg (25.0-35.0); Mean Corpuscular Volume 98 fL (80-100); Monocytes # (Auto) 0.4 Thou/mm3 (0.0-0.8); Monocytes % (Auto) 10 % (0-12); Neutrophils # (Auto) 2.2 Thou/mm3 (1.8-7.7); Neutrophils % (Auto) 58 % (37-80); Nucleated Red Blood Cell # 0.00 Thou/mm3 (0.00-0.00); Nucleated Red Blood Cell % 0 /100 WBC (0); Platelet Count 194 Thou/mm3 (140-440); RDW Standard Deviation 45.1 fL (35.1-43.9); Red Blood Count 3.07 Miln/mm3 (4.50-5.90); White Blood Count 3.8 Thou/mm3 (3.8-10.6)
[2025-02-13 14:06] LABS: Alanine Aminotransferase 18 U/L (10-49); Albumin, Serum 4.6 gm/dL (3.4-4.8); Albumin/Globulin Ratio 1.5 (1.2-2.2); Alkaline Phosphatase 57 U/L (46-116); Anion Gap 13 (7-16); Aspartate Amino Transferase 21 U/L (0-34); BUN/Creatinine Ratio 11 Ratio (12-20); Bilirubin,Total 1.2 mg/dL (0.3-1.2); Blood Urea Nitrogen 12 mg/dL (9-23); Calcium 9.6 mg/dL (8.3-10.6); Calcium (Corrected) 9.6 mg/dL (8.5-10.1); Carbon Dioxide 25.5 mMol/L (20.0-31.0); Chloride 102 mMol/L (98-107); Creatinine (Component) 1.1 mg/dL (0.6-1.3); Globulin 3.1 gm/dL (2.3-3.5); Glucose 171 mg/dL (74-106); Osmolality,Calculated 283 (275-295); Potassium 4.0 mMol/L (3.4-5.1); Sodium 140 mMol/L (136-145); Total Protein 7.7 gm/dL (5.7-8.2); eGFR > 60 See Note
[2025-02-13 14:29] LABS: Folate > 24.00 ng/mL (>5.38); Iron 70 mcg/dL (65-175); Percent Iron Saturation 23 % (20-55); Total Iron Binding Capacity 304 mcg/dL (250-425); Unsaturated Iron Binding 234 (225-295); Vitamin B12 748 pg/mL (211-911)
== END | disposition home or self-care (01) ==
LOC: COPL 13:18
PROVIDERS: PCP Internal Medicine; Referring Provider Specialist; Visit Provider Specialist
DX: D50.9 Iron deficiency anemia, unspecified (principal); K22.10 Ulcer of esophagus without bleeding
CPT/HCPCS: 36415; 80053; 82607; 82746; 83540; 83550; 85025

== ENCOUNTER 2025-03-14 10:26 | Emergency (ER) | payer OTHER, SELFPAY ==
[2025-03-14] VITALS (10 sets, daily range): BP systolic 102–135; BP diastolic 65–80; PULSE 72–87; RESP 15–22; TEMP 36.4–36.7; O2SAT 94–97; BMI 28.3
--- NOTE | 2025-03-14 10:38 | XR_ITS ---
EXAMINATION: AP chest single view TECHNIQUE: AP portable upright chest single view Date and time: March 14, 2025, 11:17 a.m., comparison June 26, 2024 INDICATIONS: Chest pain shortness of breath today. FINDINGS: Mild heart failure Mild enlargement cardiac contour Prominent central vascular congestion and early perihilar edema Cardiac leads incompletely visualized but appear in satisfactory position IMPRESSION: Mild heart failure
[2025-03-14] MEDS: FUROSEMIDE INJ 10 MG/ML 4ML VIAL 40 MG IVP (10:52)
[2025-03-14 11:17] LABS: Basophils # (Auto) 0.1 Thou/mm3 (0.0-0.2); Basophils % (Auto) 2 % (0-2.5); Eosinophils # (Auto) 0.7 Thou/mm3 (0.0-0.5); Eosinophils % (Auto) 17 % (0-10); Hematocrit 27.9 % (41.0-53.0); Hemoglobin 9.4 g/dL (13.5-16.0); Immature Granulocytes Auto 0.01 Thou/mm3 (0.00-0.00); Lymphocytes # (Auto) 0.8 Thou/mm3 (1.0-4.8); Lymphocytes % (Auto) 19 % (10-50); Mean Corpuscular HGB Conc 33.7 g/dl (31.0-37.0); Mean Corpuscular Hemoglobin 33.3 pg (25.0-35.0); Mean Corpuscular Volume 99 fL (80-100); Monocytes # (Auto) 0.3 Thou/mm3 (0.0-0.8); Monocytes % (Auto) 8 % (0-12); Neutrophils # (Auto) 2.3 Thou/mm3 (1.8-7.7); Neutrophils % (Auto) 54 % (37-80); Nucleated Red Blood Cell # 0.00 Thou/mm3 (0.00-0.00); Nucleated Red Blood Cell % 0 /100 WBC (0); Platelet Count 154 Thou/mm3 (140-440); RDW Standard Deviation 52.9 fL (35.1-43.9); Red Blood Count 2.82 Miln/mm3 (4.50-5.90); White Blood Count 4.2 Thou/mm3 (3.8-10.6)
[2025-03-14 11:29] LABS: INR 1.2 (0.9-1.3); Partial Thromboplastin Time 31.8 Seconds (22.0-36.0); Prothrombin Time 12.9 Seconds (9.0-12.2)
--- NOTE | 2025-03-14 11:31 | PD.EDSOB ---
ED SOB =RME/HPI General Chief Complaint: Shortness of Breath/Dyspnea Stated Complaint: SOB X3 WKS Time Seen by Provider: 03/14/25 10:28 Arrival date/time: 03/14/25 10:26 Limitations: no limitations RME / HPI RME / HPI Narrative: 84 year old male with history of hypertension, diabetes, hyperlipidemia presents to the ED for evaluation of shortness of breath beginning 3 weeks ago. Described feeling he is not getting enough air with no known modifying factors. Patient states he stopped his Lasix a few days ago. Denies fevers, chills, chest pain, abdomial pain, Related Data Home Medications ?Medication ?Instructions ?Recorded ?Confirmed gabapentin 100 mg capsule 100 mg PO BID 08/31/19 11/30/24 glipizide 10 mg tablet 10 mg PO BID 08/31/19 11/30/24 metformin 850 mg tablet 850 mg PO TID 08/31/19 11/30/24 nitroglycerin 0.4 mg sublingual 0.4 mg buccal USEASDIRECTD 08/31/19 11/30/24 tablet (Nitrostat) omega 9-ggq-kay-fish oil 1,000 mg 1 cap PO BID 08/31/19 11/30/24 (120 mg-180 mg) capsule (Fish Oil) simvastatin 80 mg tablet 80 mg PO QPM 08/31/19 11/30/24 terazosin 2 mg capsule 2 mg PO QDAY 08/31/19 11/30/24 furosemide 40 mg tablet 40 mg PO QDAY 11/30/24 11/30/24 gabapentin 400 mg capsule 400 mg PO .qhs 11/30/24 11/30/24 hydrocodone 5 mg-acetaminophen 325 1 tab PO Q8H PRN pain 11/30/24 12/03/24 mg tablet Previous Rx's ?Medication ?Instructions ?Recorded apixaban 2.5 mg tablet (Eliquis) 2.5 mg PO BID #30 tabs 07/17/24 Allergies Allergy/AdvReac Type Severity Reaction Status Date / Time codeine Allergy Severe ITCHING Verified 12/03/24 09:52 Review of Systems Review of Systems Systems Reviewed: All systems reviewed, normal except as documented Past Medical History Past Medical History NEUROLOGIC: Positive Neurological Disorders (FOOT DROP S/P SPINE SURGERY) and Peripheral Neuropathy CARDIAC: Positive Cardiac Disorders, Coronary Artery Disease, Hypercholesterolemia and Hypertension RESPIRATORY: Positive Asthma (SHORTNESS OF BREATH) GENITOURINARY: Positive Genitourinary Disorders (FREQUENT BLADDER INFECTIONS - RESOLVED) and Benign Prostatic Hyperplasia ENT: Positive Cataracts (BILATERAL) and Deafness ENDOCRINE: Positive Endocrine Disorders and Diabetes Mellitus Type 2 (TAKES METFORMIN, GLIPIZIDE) HEMATOLOGIC: Positive Clotting Problems PSYCHO/SOCIAL: Positive Anxiety OTHER HISTORY: Positive Hospitalization, Falls, Blood Transfusions, Chicken Pox and Mumps Family History FAMILY HISTORY: Positive Family Cardiac Disorders, Family Cancer and Family Surgery Surgical History SURGICAL: Positive Coronary Stent (X3), Pacemaker, Cochlear Implant (LEFT) and Joint Replacement Social History SMOKING STATUS: Never smoker SUBSTANCE USE: does not use ED Exam General Limitations: Present no limitations General appearance: Present alert and in no apparent distress Head Head exam: Present atraumatic and normocephalic Eye Eye exam: Present normal appearance, PERRL and EOMI ENT ENT exam: Present normal exam, normal oropharynx and mucous membranes moist Neck Neck exam: Present normal inspection, full ROM and trachea midline Chest Chest inspection: Present normal inspection and symmetric chest wall rise Respiratory Respiratory exam: Present normal lung sounds bilaterally and other (Increased respiratory rate, bibasilar crackles) Cardiovascular Cardiovascular exam: Present regular rate, normal rhythm and normal heart sounds Abdominal Exam Abdominal exam: Present soft and normal bowel sounds Extremities Exam Extremities exam: Present normal inspection, full ROM and other (2+ pretibial edema bilateral lower extremities ) Back Exam Back exam: Present normal inspection and full ROM Neurological Exam Neurological exam: Present alert, oriented X3 and CN II-XII intact Psychiatric Psychiatric exam: Present normal affect and normal mood Skin Skin exam: Present warm, dry, intact and normal color Course Quality Measures none Orders Category Date Time Status CT Screening NOW Care 03/14/25 14:21 Completed Palletiser Operator NOW Care 03/14/25 10:38 Completed Continuous Pulse Oximetry NOW Care 03/14/25 10:38 Completed EKG (ED ONLY) *Do not use* NOW Care 03/14/25 10:28 Completed Insert IV NOW Care 03/14/25 10:[address] angio abd ilio fem runoff Stat Exams 03/14/25 14:19 Completed EKG (ED Only) Stat Exams 03/14/25 10:28 Ordered XR chest 1V portable Stat Exams 03/14/25 10:38 Completed BNP [B-Type Natriuretic Peptide] Stat Lab 03/14/25 10:56 Completed CBC Stat Lab 03/14/25 10:56 Completed Comprehensive Metabolic Panel Stat Lab 03/14/25 10:56 Completed Partial Thromboplastin Time Stat Lab 03/14/25 10:56 Completed Prothrombin Time with INR Stat Lab 03/14/25 10:56 Completed Troponin I Stat Lab 03/14/25 10:56 Completed Troponin I Stat Lab 03/14/25 14:15 Completed Type and Screen Stat Lab 03/14/25 10:56 Completed Urinalysis Stat Lab 03/14/25 11:19 Completed Furosemide Inj [Lasix Inj] Med 03/14/25 10:43 Discontinued 40 mg IVP X1 ONE Pantoprazole Inj [Protonix Inj] Med 03/14/25 10:43 Discontinued 40 mg IVP X1 ONE metOLazone [Zaroxolyn] Med 03/14/25 16:10 Discontinued 5 mg PO X1 ONE Oxygen Delivery NOW RT 03/14/25 10:38 Completed Vital Signs Vital signs: Vital Signs Temperature 97.7 F 03/14/25 10:33 Pulse Rate 87 03/14/25 10:33 Respiratory Rate 22 H 03/14/25 10:33 Blood Pressure 135/80 H 03/14/25 10:33 Pulse Oximetry (%) 94 L 03/14/25 10:33 Oxygen Delivery Method Room Air 03/14/25 10:33 Pulse ox is 94% on room air which is adequate. Shortness of Breath / Dyspnea MDM Narrative MDM Narrative:: Yulissa Toro am scribing for and in the presence of Dr. Al. 1800: Patient signed out to Dr. Garcia pending delta trop and final disposition. Patient data External records reviewed:: [facility] previous records Clinical information provided by:: patient Social determinants that could affect healthcare access:: none Patient has the following chronic illnesses:: hypertension, diabetes, hyperlipidemia How is presenting disease/condition affected by chronic disease/condition?: exacerbated by Evaluation data The following diagnostics were reviewed and interpreted by me:: lab results, radiology exam(s) and EKG tracing(s) (EKG @ 10:30h, interpreted by me, ventricular paced, rate 88. ) Lab and/or radiology exams considered but not ordered:: None Interpretation Summary: Ordering Physician: Griffin Al MD Date of Service: 03/14/25 Procedure(s): XR chest 1V portable Accession Number(s): [id number] cc: Miguel Springer; Griffin Al MD; Kishan Calderón MD~ EXAMINATION: AP chest single view TECHNIQUE: AP portable upright chest single view Date and time: March 14, 2025, 11:17 a.m., comparison June 26, 2024 INDICATIONS: Chest pain shortness of breath today. FINDINGS: Mild heart failure Mild enlargement cardiac contour Prominent central vascular congestion and early perihilar edema Cardiac leads incompletely visualized but appear in satisfactory position IMPRESSION: Mild heart failure Dictated By: Kishan Calderón MD Signed By: <Electronically signed by Kishan Calderón MD in OV> 03/14/25 1135 Medications / Prescriptions Medications or Prescriptions considered but not ordered:: None Medication administrations:: Medication Administration History Discontinued Medications Furosemide (Furosemide Inj 10 Mg/Ml 4ml Vial) 40 mg IVP X1 ONE Stop: 03/14/25 10:44 Last Admin: 03/14/25 10:52 Dose: 40 mg Documented By: BY Metolazone (Metolazone 2.5 Mg Tablet) 5 mg PO X1 ONE Stop: 03/14/25 16:11 Last Admin: 03/14/25 17:38 Dose: 5 mg Documented By: BY Pantoprazole Sodium (Pantoprazole Inj 40 Mg Vial) 40 mg IVP X1 ONE Stop: 03/14/25 10:44 Last Admin: 03/14/25 10:52 Dose: 40 mg Documented By: BY See above Consultations Consultation(s) initiated? (list below): No Diagnosis Shortness of Breath Differential Diagnosis: acute exacerbation of chronic obstructive airways disease, congestive heart failure, community acquired pneumonia and pulmonary embolism Most likely diagnosis given after review of the tests above:: Shortness of breath Admission Indicated Admission indicated?: not indicated Admission Request Was there a request for admission?: No Disposition Plan Disposition Plan: Discharge Discharge Attestation Discharge Attestation: The patient and all family members were given an opportunity to ask questions and understood the discharge instructions. Discharge instructions specifically effects, indications for sooner follow up or return to the emergency department, and the expected course of current diagnosis. Patient condition: Stable Discharge Plan Plan Patient Disposition: HOME (Self Care) Prescriptions/Referrals Prescriptions/Med Rec: No Action glipizide 10 mg Tablet 10 mg PO BID metformin 850 mg Tablet 850 mg PO TID simvastatin 80 mg Tablet 80 mg PO QPM terazosin 2 mg Capsule 2 mg PO QDAY nitroglycerin [Nitrostat] 0.4 mg Tablet, Sublingual 0.4 mg BUCCAL USEASDIRECTD gabapentin 100 mg Capsule 100 mg PO BID omega 5-pzg-ver-fish oil [Fish Oil] 1,000 mg (120 mg-180 mg) Capsule 1 cap PO BID Eliquis 2.5 mg tablet 2.5 mg PO BID Qty: 30 1RF hydrocodone-acetaminophen 5-325 mg tablet 1 tab PO Q8H PRN (Reason: pain) Patient Comments: TAKE 1 TABLET BY MOUTH EVERY 6 HOURS NEEDED FOR PAIN FOR 30 DAYS gabapentin 400 mg capsule 400 mg PO .qhs furosemide 40 mg tablet 40 mg PO QDAY Referrals: Miguel Springer [Primary Care Provider] - In 1 week Problem List Clinical Impression: CHF (congestive heart failure) Patient/Caregiver Discharge Instructions Discharge Activity: activity as tolerated Education Materials: ED CHF Left Side Additional Instructions: Discharge Instructions from Dr. Garcia: --After evaluation, your symptoms are due to CHF (congestive heart failure) or fluid in your lungs.? See attached handout. --When you were younger, your heart was strong and pumped everything out.? Now that your heart is weaker, it?s not able to pump all the blood/fluid out of the heart when it pumps.? So the remaining blood/fluid goes back into your lungs.? And into feet/legs by gravity.? --To help urinate out the extra fluid, take Lasix 20 mg every morning. --When sitting or resting and sleeping, elevate the head of bed and elevate your feet/ankles above your waist level.? This is extremely important to get the extra fluid back into your circulation so you can urinate out the extra fluid. --Limit all oral fluid intake. Don't go out of your way to drink too much fluid--only when your body tells you to drink.?? Your heart can't handle too much fluid anymore. --Eat a banana daily because Lasix can lower your potassium level.?? --See your private doctor on 03/18/2025 for recheck and further care.?? To make sure there is no serious underlying heart condition, ask to help you get more tests for your heart that cannot be done here in the ER.? Such as Holter Monitor (cardiac monitoring at home from a day to even a month), heart stress test (on treadmill or with medication), echocardiogram (imaging of your heart structures), heart catherization (checking for blockages in your heart arteries), and a referral to see a Estate Agent. Ask to review all test results and official radiology reports, to make sure you receive all necessary follow-ups and monitoring. --Seek immediate medical care with worsening or with any concerns.? Print Language: Uzbek Stand Alone Forms: Daniella Award Info., Patient Portal Info Letter
[2025-03-14 11:36] LABS: Collection Type, Urine Clean Catch
[2025-03-14 11:39] LABS: B-Type Natriuretic Peptide 2407 pg/mL (0-100)
[2025-03-14 11:42] LABS: Alanine Aminotransferase 16 U/L (10-49); Albumin, Serum 5.0 gm/dL (3.4-4.8); Albumin/Globulin Ratio 2.1 (1.2-2.2); Alkaline Phosphatase 52 U/L (46-116); Anion Gap 12 (7-16); Aspartate Amino Transferase 23 U/L (0-34); BUN/Creatinine Ratio 17 Ratio (12-20); Bilirubin,Total 1.5 mg/dL (0.3-1.2); Blood Urea Nitrogen 17 mg/dL (9-23); Calcium 9.5 mg/dL (8.3-10.6); Calcium (Corrected) 9.5 mg/dL (8.5-10.1); Carbon Dioxide 23.3 mMol/L (20.0-31.0); Chloride 106 mMol/L (98-107); Creatinine (Component) 1.0 mg/dL (0.6-1.3); Estimated Creatinine Clearance 50.0 mL/min (>60); Globulin 2.4 gm/dL (2.3-3.5); Glucose 143 mg/dL (74-106); Osmolality,Calculated 284 (275-295); Potassium 4.6 mMol/L (3.4-5.1); Sodium 141 mMol/L (136-145); Total Protein 7.4 gm/dL (5.7-8.2); eGFR > 60 See Note
[2025-03-14 11:43] LABS: Troponin I 0.051 ng/mL (0.0-0.045)
[2025-03-14 12:02] LABS: Bacteria,Urine Rare; Bilirubin,Urine Negative (Negative); Blood,Urine Negative (Negative); Clarity,Urine Clear (Clear/Hazy); Color,Urine Lt-Yellow (Lt Yel-Yel); Glucose, Urine Negative (Negative); Ketones,Urine Negative (Negative); Leukocyte Esterase,Urine Negative (Negative); Nitrite,Urine Negative (Negative); PH,Urine 6.5 (5.0-7.0); Protein,Urine Negative (Neg - Trace); RBC,Urine < 1 /hpf (0-3); Specific Gravity,Urine 1.011 (1.001-1.035); Squamous Epithelial Cell,Urine < 1 /hpf (0-5); Urobilinogen,Urine Negative mg/dL (0.0-1.0); WBC,Urine 1 /hpf (0-5)
--- NOTE | 2025-03-14 14:19 | XR_ITS ---
Examination: CTA abdominal aorta iliofemoral runoff. 2-D sagittal coronal reconstructions. 3-D reconstructions, vascular March 14, 2025, 1720 hours INDICATIONS: Bilateral leg swelling beginning 2 weeks ago Technique: Multiple CTA images of the abdominal aorta iliofemoral runoff arterial vessels, 2.0 mm slice thickness, post intravenous administration 130 cc [id number] 2-D sagittal coronal reconstructions. 3-D reconstructions, vascular 3-D postprocessing, including vascular maximum intensity projection images, 3-D volume rendering Low dose protocols were performed. One or more of the following dose reduction techniques were used; automated exposure control, adjustment of the mA and/or KV according to patient size, use of iterative reconstruction technique. Findings: AP dimension ascending thoracic aorta 4.1 cm Main pulmonary artery segment measures 31 mm Mild enlargement cardiac contour 5 mm pulmonary nodule right lower lobe axial image 27 Small bilateral pleural effusions No visualized liver or splenic lesion Gallbladder is not visualized No extraparotid biliary tract dilatation No pancreatic or adrenal mass Perinephric stranding, no renal or ureteral calculi Absent appendix No bowel obstruction No diverticulitis Mediolateral prostate dimension 4.5 cm Fat-containing left inguinal hernia 25 mm fat-containing umbilical hernia. Calcified abdominal aorta no aneurysmal dilatation No critical stenoses origin celiac superior mesenteric axes or renal arteries Significant calcification common iliac arteries, 50% stenosis proximal left common iliac artery External iliac common femoral arteries intact Right superficial femoral artery demonstrates no critical stenoses Right popliteal artery is intact Right anterior tibial artery shows irregularity but does fill to the ankle with filling of the dorsalis pedis The main continuation truck on the right is significantly attenuated Right posterior tibial artery demonstrates heavy calcification with 50% stenoses in its mid and distal portion and 70% stenosis distally Left superficial femoral artery intact as well as popliteal artery 70% stenosis proximal left posterior tibial artery, dorsalis pedis artery does fill Attenuated left main continuation trunk Multiple 70% proximal stenoses of the left posterior tibial artery with occlusion in its midportion IMPRESSION: Mild aneurysmal dilatation ascending thoracic aorta AP dimension 4.1 cm No pulmonary artery emboli 5 mm pulmonary nodule right lower lobe, recommend imaging follow-up 50% stenosis proximal left common iliac artery Bilateral significant attenuation Main continuation trifurcation vessels below the knee Multiple 50% stenoses in the mid portion right posterior tibial artery and 70% stenosis distal right posterior tibial artery 70% stenosis proximal left posterior tibial artery Multiple 70% stenoses proximal left posterior tibial artery with occlusion in its midportion
[2025-03-14 14:59] LABS: Troponin I 0.062 ng/mL (0.0-0.045)
--- NOTE | 2025-03-14 18:27 | PD.EDADDENDU ---
Emergency Room Addendum Addendum Narrative: I took over the care from previous shift physician at 6 PM on 03/14/2025. See previous notes for complete H & P and ED course. I reviewed all diagnostic test results. My interpretation of the EKG is My interpretation of the chest x-ray is mild heart failure. My review of the Abdomen/Pelvis CTA report is mild aneurysmal dilatation ascending thoracic aorta AP dimension 4.1 cm. No pulmonary artery emboli 5 mm pulmonary nodule right lower lobe, recommend imaging follow-up. 50% stenosis proximal left common iliac artery. Bilateral significant attenuation Main continuation trifurcation vessels below the knee. Multiple 50% stenoses in the mid portion right posterior tibial artery and 70% stenosis distal right posterior tibial artery 70% stenosis proximal left posterior tibial artery. Multiple 70% stenoses proximal left posterior tibial artery with occlusion in its midportion. Blood tests and urine tests Diagnoses include: Congestive Heart Failure (CHF) Treatment here included Zaroxolyn 5 mg Protonix 40 mg Lasix 40 mg Based on my best medical judgment, made decision no further evaluation or treatment indicated at this time. Patient understands and agrees to the discharge instructions customized and printed, see below. Discharge Instructions from Dr. Garcia: --After evaluation, your symptoms are due to CHF (congestive heart failure) or fluid in your lungs. See attached handout. --When you were younger, your heart was strong and pumped everything out. Now that your heart is weaker, it?s not able to pump all the blood/fluid out of the heart when it pumps. So the remaining blood/fluid goes back into your lungs. And into feet/legs by gravity. --To help urinate out the extra fluid, take Lasix 20 mg every morning. --When sitting or resting and sleeping, elevate the head of bed and elevate your feet/ankles above your waist level. This is extremely important to get the extra fluid back into your circulation so you can urinate out the extra fluid. --Limit all oral fluid intake. Don't go out of your way to drink too much fluid--only when your body tells you to drink. Your heart can't handle too much fluid anymore. --Eat a banana daily because Lasix can lower your potassium level. --See your private doctor on 03/18/2025 for recheck and further care. To make sure there is no serious underlying heart condition, ask to help you get more tests for your heart that cannot be done here in the ER. Such as Holter Monitor (cardiac monitoring at home from a day to even a month), heart stress test (on treadmill or with medication), echocardiogram (imaging of your heart structures), heart catherization (checking for blockages in your heart arteries), and a referral to see a Education Manager. Ask to review all test results and official radiology reports, to make sure you receive all necessary follow-ups and monitoring. --Seek immediate medical care with worsening or with any concerns. Hernan Garcia MD
--- NOTE | 2025-03-14 19:44 | EDNOTE_ITS ---
Emergency Room Addendum Addendum Narrative: I took over the care from previous shift physician, Dr. Al, at _1800_ on _03/14/25_.? See previous notes for complete H & P and ED course.?? I reviewed all diagnostic test results. Diagnoses include: CHF Treatment here included: Lasix 40 mg IV Significant improvement noted with large amount of urine output. Recommended outpatient care. Based on my best medical judgment, made decision no further evaluation or treatment indicated at this time.? Patient understands and agrees to the discharge instructions customized and printed, see below. Discharge Instructions from Dr. Garcia: --After evaluation, your symptoms are due to CHF (congestive heart failure) or fluid in your lungs.? See attached handout. --When you were younger, your heart was strong and pumped everything out.? Now that your heart is weaker, it?s not able to pump all the blood/fluid out of the heart when it pumps.? So the remaining blood/fluid goes back into your lungs.? And into feet/legs by gravity.? --To help urinate out the extra fluid, take Lasix 20 mg every morning. --When sitting or resting and sleeping, elevate the head of bed and elevate your feet/ankles above your waist level.? This is extremely important to get the extra fluid back into your circulation so you can urinate out the extra fluid. --Limit all oral fluid intake. Don't go out of your way to drink too much fluid--only when your body tells you to drink.?? Your heart can't handle too much fluid anymore. --Eat a banana daily because Lasix can lower your potassium level.?? --See your private doctor on 03/18/2025 for recheck and further care.?? To make sure there is no serious underlying heart condition, ask to help you get more tests for your heart that cannot be done here in the ER.? Such as Holter Monitor (cardiac monitoring at home from a day to even a month), heart stress test (on treadmill or with medication), echocardiogram (imaging of your heart structures), heart catherization (checking for blockages in your heart arteries), and a referral to see a Internet Marketing Consultant. Ask to review all test results and official radiology reports, to make sure you receive all necessary follow-ups and monitoring. --Seek immediate medical care with worsening or with any concerns.? Hernan Garcia MD
== END 2025-03-14 19:58 | disposition home or self-care (01) ==
PROVIDERS: Family Medicine; Emergency Provider Emergency Medicine; PCP Internal Medicine
DX: R06.02 Shortness of breath (principal); E11.9 Type 2 diabetes mellitus without complications; E78.5 Hyperlipidemia, unspecified; I11.0 Hypertensive heart disease with heart failure; Z79.01 Long term (current) use of anticoagulants; Z79.84 Long term (current) use of oral hypoglycemic drugs; Z95.0 Presence of cardiac pacemaker; Z95.5 Presence of coronary angioplasty implant and graft
CPT/HCPCS: 36415; 71045; 75635; 80053; 81001; 83880; 84484; 85025; 85610; 85730; 86850; 86900; 86901; 93005; 96374; 96375; 99284; A4649; J1938; J2470; Q9967; A9270